=== PATIENT | female | born 1995 | race Caucasian/White ===

== ENCOUNTER 2016-10-16 02:11 | Emergency (ER) | payer BC ==
[~2016-10-16] VITALS: Ht 167.6 cm; Wt 63.0 kg
[~2016-10-16 02:11] MED LIST: CIPRO500 MG PO; FLOMAX0.4 MG PO; HYDROCODON-ACE1 EAC7 PO; IRON; KEFLEX500 MG PO; LEVOFLOXACIN250 MG PO; MOTRIN800 MG PO; NAPROSYN500 MG PO; NORCO 5/3251 TABLET PO; PERCOCET 5/31 TABLET PO; SERTRALINE HCL100 MG PO; THERALITH XR T1 EACH PO; TRI-SPRINTEC1 EACH PO; ZOFRAN4 MG PO
[2016-10-16 03:18] LABS: CHLORIDE 108 mEq/L (99-109); POTASSIUM 3.6 mEq/L (3.7-5.4); SODIUM 137 mEq/L (136-147)
[2016-10-16 03:20] LABS: GLUCOSE 103 mg/dL (70-99)
[2016-10-16 03:21] LABS: ANION GAP 9 MEQ/L (2-14)
[2016-10-16 03:24] LABS: GFR ESTIMATE (CALCULATED) > 59 mL/min/; HEMATOCRIT 34.8 % (36.0-46.0); MCH 22.9 PG (29.0-34.0); MCHC 30.7 G/DL (30.0-36.0); MCV 74.4 FL (83-99); MEAN PLAT.VOLUME 9.6 uM^3 (9.5-12.4); PLATELET COUNT 224 K/uL (156-360); RBC DIS.WIDTH-CV 16.9 % (11.8-14.6); RBC DIS.WIDTH-SD 45.1 % (39-53); RED BLOOD COUNT 4.68 M/uL (3.80-5.20); WHITE BLOOD COUNT 3.5 K/uL (4.1-10.2)
[2016-10-16 03:25] LABS: UREA NITROGEN (BUN) 7 mg/dL (9-23)
[2016-10-16 03:31] LABS: BILIRUBIN NEGATIVE; BLOOD NEGATIVE; COLOR YELLOW ((YELLOW)); GLUCOSE (STRIP) NEGATIVE; KETONES NEGATIVE; LEUKOCYTES NEGATIVE; NITRITE NEGATIVE; PROTEIN (STRIP) 30; SPECIFIC GRAVITY 1.026 (1.000-1.030); UROBILINOGEN 0.2 MG/DL (0.2-1.0)
[2016-10-16 03:32] LABS: ADD MIUA? NO; UCUL ADDED? NO
[2016-10-16 03:33] LABS: INTERNAL CONTROL VALID? YES; MONOSPOT (MONONUCLEOSIS SEROL) NEGATIVE
[2016-10-16] MEDS ORDERED: ZITHROMAX500 MG PO (04:33)
[2016-10-16 04:49] VITALS: BP 114/80
== END 2016-10-16 04:50 | disposition home or self-care (01) ==
LOC: EME 02:11
PROVIDERS: Emergency Medicine
DX: J02.9 Acute pharyngitis, unspecified (principal); R59.9 Enlarged lymph nodes, unspecified; F17.200 Nicotine dependence, unspecified, uncomplicated; F41.9 Anxiety disorder, unspecified
CPT/HCPCS: 80048; 81003; 85027; 86308; 87651 90; 99281; 99284; J1100

== ENCOUNTER 2017-02-15 14:45 | Emergency (ER) | payer BC ==
[~2017-02-15] VITALS: Ht 170.2 cm; Wt 63.5 kg
[~2017-02-15 14:45] MED LIST changes: +ZITHROMAX500 MG PO
[2017-02-15 15:55] LABS: ADD MIUA? NO; BILIRUBIN NEGATIVE; BLOOD NEGATIVE; COLOR STRAW ((YELLOW)); GLUCOSE (STRIP) NEGATIVE; KETONES NEGATIVE; LEUKOCYTES NEGATIVE; NITRITE NEGATIVE; PROTEIN (STRIP) NEGATIVE; SPECIFIC GRAVITY 1.004 (1.000-1.030); UROBILINOGEN 0.2 MG/DL (0.2-1.0)
[2017-02-15 16:02] LABS: HEMATOCRIT 38.6 % (36.0-46.0); MCH 22.4 PG (29.0-34.0); MCHC 30.3 G/DL (30.0-36.0); MCV 73.8 FL (83-99); MEAN PLAT.VOLUME 9.9 uM^3 (9.5-12.4); PLATELET COUNT 320 K/uL (156-360); RBC DIS.WIDTH-CV 16.1 % (11.8-14.6); RBC DIS.WIDTH-SD 42.5 % (39-53); RED BLOOD COUNT 5.23 M/uL (3.80-5.20); WHITE BLOOD COUNT 7.3 K/uL (4.1-10.2)
[2017-02-15 16:03] LABS: CHLORIDE 106 mEq/L (99-109); POTASSIUM 3.8 mEq/L (3.7-5.4); SODIUM 137 mEq/L (136-147)
[2017-02-15 16:05] LABS: GLUCOSE 80 mg/dL (70-99)
[2017-02-15 16:06] LABS: ANION GAP 12 MEQ/L (2-14)
[2017-02-15 16:07] LABS: TOTAL BILIRUBIN 0.3 mg/dL (0.0-1.0)
[2017-02-15 16:08] LABS: ALKALINE PHOSPHATASE 107 IU/L (3-129)
[2017-02-15 16:09] LABS: GFR ESTIMATE (CALCULATED) > 59 mL/min/
[2017-02-15 16:10] LABS: UREA NITROGEN (BUN) 6 mg/dL (9-23)
[2017-02-15 16:12] LABS: LIPASE 43 U/L (1.0-51.0)
[2017-02-15 16:19] LABS: QUANTITATIVE HCG < 4.0 MIU/ML
[2017-02-15] MEDS ORDERED: LEXAPRO20 MG PO (16:23)
[2017-02-15] MEDS ORDERED: BUSPAR15 MG PO (16:23)
[2017-02-15] MEDS ORDERED: MIRENA1 EACH IY (16:23)
[2017-02-15] MEDS ORDERED: LAMICTAL100 MG PO (16:23)
[2017-02-15] MEDS ORDERED: ZOFRAN ODT4 MG PO (17:35)
[2017-02-15] MEDS ORDERED: ULTRAM50 MG PO (17:35)
[2017-02-15 18:24] VITALS: BP 102/78
== END 2017-02-15 18:00 | disposition home or self-care (01) ==
LOC: EME 14:45
PROVIDERS: Nurse Practitioner Family
DX: N83.201 Unspecified ovarian cyst, right side (principal); R30.0 Dysuria; R11.0 Nausea; Z87.442 Personal history of urinary calculi; Z97.5 Presence of (intrauterine) contraceptive device; Z88.1 Allergy status to other antibiotic agents; Z87.891 Personal history of nicotine dependence
CPT/HCPCS: 74177; 80053; 81003; 83690; 84702; 85027; 99281; 99285; J1885; J2405; J7030